=== PATIENT | male | born 1965 | race Caucasian/White ===

== ENCOUNTER 2023-10-21 13:20 | Outpatient (REF) | payer OTHER, SELFPAY ==
--- NOTE | ~2023-10-21 | XR_ITS ---
EXAMINATION: XR FOOT, RIGHT CLINICAL INFORMATION: Order states right flank pain rule out fracture. Pain 2 weeks denies injury. Patient states pain is bottom of foot. COMPARISON: Right foot of 08/26/2010. TECHNIQUE: AP, lateral, and oblique views of the right foot. FINDINGS: Mild degenerative changes in the first metatarsophalangeal and scattered interphalangeal joints of the toes. Degenerative changes on limited views of the ankle with hypertrophic change which could be better evaluated with dedicated ankle radiographs if desired. Prominent dorsal calcaneal enthesophyte. Tiny plantar calcaneal spur. Hypertrophic change at the dorsal aspect of the talar neck. XR/XR foot RT min 3V IMPRESSION: 1. Mild degenerative changes in the first metatarsophalangeal and scattered interphalangeal joints of the toes. 2. Degenerative changes on limited views of the ankle with hypertrophic change which could be better evaluated with dedicated ankle radiographs if desired. 3. Prominent dorsal calcaneal enthesophyte. Tiny plantar calcaneal spur. Recommend follow-up imaging in 10-14 days if fracture is suspected. This study was presented today for every 10/27/2023 for interpretation. Prompt priority results supplied at this time to the referring provider as requested by the provider.
== END 2023-10-21 13:21 | disposition home or self-care (01) ==
LOC: HO.HHCX 13:20
PROVIDERS: Visit Provider Pediatrics
DX: M79.671 Pain in right foot (principal)
CPT/HCPCS: 73630

== ENCOUNTER 2023-11-03 12:41 | Outpatient (REF) | payer OTHER, SELFPAY ==
--- NOTE | ~2023-11-03 | XR_ITS ---
EXAMINATION: XR FOOT, RIGHT CLINICAL INFORMATION: Arch pain, arthritic changes in right foot COMPARISON: Right foot 10/21/2023 TECHNIQUE: AP, lateral, and oblique views of the right foot. FINDINGS: The bones are intact. Alignment is within normal limits. Mild degenerative changes in the first metatarsophalangeal joint and scattered interphalangeal joints of the toes are again seen. Prominent dorsal calcaneal enthesophyte. Hypertrophic change of the dorsal aspect of the talar neck. XR/XR foot RT min 3V IMPRESSION: No acute bony abnormality. No significant interval change.
--- NOTE | ~2023-11-03 | XR_ITS ---
EXAMINATION: XR ANKLE, RIGHT CLINICAL INFORMATION: Arch pain, arthritic changes in right foot/ankle. COMPARISON: Same-day right foot, right foot 10/21/2023 TECHNIQUE: AP, lateral, and mortise views of the right ankle. FINDINGS: No fracture. Alignment is anatomic. No erosions. Joint spaces are maintained. Small anterior osteophyte extends off the distal tibia. Prominent dorsal calcaneal enthesophyte is again seen. XR/XR ankle RT min 3V IMPRESSION: No acute bony abnormality.
== END 2023-11-03 12:42 | disposition home or self-care (01) ==
LOC: HO.HHCX 12:41
PROVIDERS: Visit Provider Pediatrics
DX: M79.671 Pain in right foot (principal)
CPT/HCPCS: 73610; 73630

== ENCOUNTER 2024-03-29 07:34 | Emergency (ER) | payer OTHER, SELFPAY ==
[2024-03-29 07:38] VITALS: BP 136/92; BP 149/89; PULSE 68; PULSE 71; RESP 17; TEMP 36.6; O2SAT 96; O2SAT 99; BMI 40.0
[2024-03-29 08:00] VITALS: BP 140/75; PULSE 66; RESP 94; TEMP 36.9; O2SAT 94
[2024-03-29] MEDS: 0.9 % Sodium Chloride 1,000 ML 999 ML IVCONT ×2 (08:03→09:08)
[2024-03-29 08:08] LABS: MANUAL DIFF FLAG NO
[2024-03-29 08:14] LABS: Basophils Percent Auto 0.3 % (0-2); Eosinophils Absolute Auto 1.3 X10*3/uL (0.0-0.4); Eosinophils Percent Auto 8.5 % (0-4); Hematocrit 46.8 % (42.0-52.0); Hemoglobin 16.5 g/dl (14.0-18.0); Imm Gran Abs Auto 0.09 X10*3/uL (0.00-0.03); Imm Gran Pct Auto 0.6 % (0.0-0.4); Lymphocytes Absolute Auto 1.9 X10*3/uL (1.2-4.9); Mean Corpuscular HGB Conc 35.3 g/dl (31.0-36.0); Mean Corpuscular Hemoglobin 28.6 pg (27.0-33.0); Mean Corpuscular Volume 81.3 fL (80.0-98.0); Monocytes Percent Auto 6.5 % (2-11); Neutrophils Absolute Auto 11.3 x10*3/uL (2.0-8.3); Neutrophils Percent Auto 72.1 % (45-73); Platelet Count 210 X10*3/uL (160-400); Red Blood Count 5.76 X10*6/uL (4.60-5.80); Red Cell Distribution Width 13.2 % (11.0-16.0); White Blood Count 15.7 X10*3/uL (4.8-10.8)
[2024-03-29 08:25] LABS: Alanine Aminotransferase 14 U/L (0-40); Albumin Level 3.9 g/dL (3.5-5.0); Alkaline Phosphatase 77 U/L (39-117); Anion Gap 15 (12-20); Aspartate Amino Transferase 17 U/L (5-37); Bilirubin Total 0.6 mg/dL (0.0-1.0); Blood Urea Nitrogen 9 mg/dL (9-16); Calcium 9.1 mg/dL (8.4-10.2); Carbon Dioxide 27 mmol/L (22-29); Chloride 103 mmol/L (96-108); Creatinine Clr Calc Pharmacy 110.9; Estimated Glomerular Filt Rate > 60; Glucose Random 108 mg/dL (60-115); Potassium 3.6 mmol/L (3.3-5.1); Sodium 141 mmol/L (135-145); Total Protein 7.2 g/dL (6.5-8.0)
--- NOTE | 2024-03-29 10:13 | ED.GENADULT ---
HPI - General Adult General Chief complaint: Abdominal Pain Stated complaint: DIARRHERA, DIZZY X3 Time Seen by Provider: 03/29/24 07:37 Source: patient Mode of arrival: ambulatory Limitations: no limitations History of Present Illness ED Provider: Dr. Velez HPI narrative: Patient with weakness secondary to a few days of explosive diarrhea, states that his has had cdiff in the past. No blood, no recent abx Onset (ago): day(s) Related Data Allergies Allergy/AdvReac Type Severity Reaction Status Date / Time amoxicillin Allergy Unknown rash Verified 03/29/24 07:47 clarithromycin Allergy Unknown rash Verified 03/29/24 07:47 No Known Allergies Allergy Verified 03/29/24 07:47 [No Known Allergies*] Review of Systems Review of Systems: Yes all other systems are reviewed and are negative Neurologic: Denies Sensory deficit (Neuro) [facility] Social History Social History Smoked in Last 30 Days: No Advance Directives: No Advance Directives Information Provided: No Do you have a plan to hurt others: No Plan Physical Exam ED Vital Signs: Vital Signs - 24 hr 03/29/24 07:38 03/29/24 08:00 Temperature 97.8 F 98.5 F Pulse Rate 71 66 Respiratory Rate 17 94 H Blood Pressure 149/89 H 140/75 H Pulse Oximetry 99 94 Oxygen Delivery Method Nasal Cannula Room Air BMI result Body Mass Index 40.0 Const General: healthy appearing Nutritional Appearance: obese Orientation/consciousness: oriented to person and patient oriented x3 Limitations: no limitations HENMT Head: Yes normal to inspection Ears: external ears normal General nose exam: Normal external nose present Mouth: Normal oral and palatal mucosa present and oropharynx normal Throat: Yes posterior oropharynx normal Eyes General: appearance normal, both eyes and all related structures Neck Neck: Yes normal visual inspection Chest Chest palpation & inspection: normal inspection of the chest Resp Auscultation: clear to auscultation bilaterally Cardio Jugular venous distension: no JVD Rate: regular rate Rhythm: regular rhythm Heart sounds: S1 normal heart sound present and S2 normal heart sound present GI Inspection: Yes normal to inspection Palpation (GI): Soft to palpation, nontender and No hepatosplenomegaly present Auscultation: normal bowel sounds General: Yes no CVA tenderness Back/Spine/Pelvis Back: no CVA tenderness Skin General skin exam: no rashes or lesions noted Neuro General: oriented to person and patient oriented x3 Cranial nerves: Yes CN's II-XII intact bilaterally Motor exam (neuro): 5/5 motor strength present throughout Sensory Exam: No Sensory deficit (Neuro) Extrem General: Yes normal to inspection Psych Appearance: grossly normal Course Reevaluation(s) Reevaluation #1: patient hungry, looking well, cdiff negative, will dc home Time: 12:59 Medications Administered Discontinued Medications Generic Name Dose Route Start Last Admin Trade Name Freq PRN Reason Stop Dose Admin Sodium Chloride 1,000 mls @ 999 mls/hr 03/29/24 08:00 03/29/24 10:29 Ns IVCONT 03/29/24 10:00 Infused .Q1H1M SUJEY Infusion Oxycodone HCl 15 mg 03/29/24 10:13 03/29/24 10:23 Oxycodone Hcl Immed Release 15 Mg Tablet PO 03/29/24 10:14 15 mg ONCE ONE Administration Medical Decision Making Differential Diagnosis Differential Diagnoses: The differential diagnosis associated with the presentation includes (diarrhea, cdiff, dehydration, renal failure) Admission/Observation Consideration of admission/observation: Escalation of care including admission/observation considered (upon arrival patient considered for admission) Lab Data 03/29/24 07:59 03/29/24 07:59 Labs: Lab Results 03/29/24 03/29/24 Range/Units 07:59 11:16 WBC 15.7 H (4.8-10.8) X10*3/uL RBC 5.76 (4.60-5.80) X10*6/uL Hgb 16.5 (14.0-18.0) g/dl Hct 46.8 (42.0-52.0) % MCV 81.3 (80.0-98.0) fL MCH 28.6 (27.0-33.0) pg MCHC 35.3 (31.0-36.0) g/dl RDW 13.2 (11.0-16.0) % Plt Count 210 (160-400) X10*3/uL MPV 10.0 (9.4-12.4) fL Immature Gran % (Auto) 0.6 H (0.0-0.4) % Neut % (Auto) 72.1 (45-73) % Lymph % (Auto) 12.0 L (20-40) % [place] % (Auto) 6.5 (2-11) % Eos % (Auto) 8.5 H (0-4) % Baso % (Auto) 0.3 (0-2) % Lymph # (Auto) 1.9 (1.2-4.9) X10*3/uL [place] # (Auto) 1.0 (0.1-1.2) X10*3/uL Eos # (Auto) 1.3 H (0.0-0.4) X10*3/uL Baso # (Auto) 0.0 (0.0-0.2) X10*3/uL Abs Immat Gran (auto) 0.09 H (0.00-0.03) X10*3/uL Absolute Neuts (auto) 11.3 H (2.0-8.3) x10*3/uL Absolute Nucleated RBC 0.000 (0.0-0.012) X10*3/uL Nucleated RBC % (auto) 0.0 (0.0-0.2) /100WBC Sodium 141 (135-145) mmol/L Potassium 3.6 (3.3-5.1) mmol/L Chloride 103 (96-108) mmol/L Carbon Dioxide 27 (22-29) mmol/L Anion Gap 15 (12-20) BUN 9 (9-16) mg/dL Creatinine 1.04 (0.5-1.4) mg/dL Estim Creat Clear Calc 110.9 Estimated GFR > 60 Random Glucose 108 (60-115) mg/dL Calcium 9.1 (8.4-10.2) mg/dL Total Bilirubin 0.6 (0.0-1.0) mg/dL AST 17 (5-37) U/L ALT 14 (0-40) U/L Alkaline Phosphatase 77 (39-117) U/L Total Protein 7.2 (6.5-8.0) g/dL Albumin 3.9 (3.5-5.0) g/dL C. difficile Tox B Gene NEGATIVE (Negative) Tests considered The following testing was considered but not selected: CT of abdomen considered but abdomen is soft nontender non focal Prescription Management I considered prescription management with: Antibiotic (despite elevated WBC, no evidence of infectious etiology) Chronic Conditions Patient?s care impacted by: Other (COPD) Discharge Plan Discharge Clinical Impression: Enteritis Patient Disposition: Home, Self-Care Instructions: Acute Diarrhea (ED) Additional Instructions: clear liquid diet until diarrhea stops Referrals: Jennifer Cox MD [Primary Care Provider] - 5 days Print Language: Mohawk
[2024-03-29] MEDS: oxyCODONE HCl Immed Release 15 MG TABLET PO (10:23)
[2024-03-29 12:28] LABS: CDiff Gene PCR NEGATIVE (Negative)
[2024-03-29 13:27] VITALS: BP 140/75; PULSE 66; RESP 94; TEMP 36.9; O2SAT 94
[2024-03-30 07:08] LABS: Adenovirus F 40/41 Not Detected (Not Detect.); Astrovirus Not Detected (Not Detect.); Campylobacter Not Detected (Not Detect.); Cryptosporidium Not Detected (Not Detect.); Cyclospora cayetanensis Not Detected (Not Detect.); E. coli EAEC Not Detected (Not Detect.); E. coli EPEC Not Detected (Not Detect.); E. coli ETEC Not Detected (Not Detect.); E. coli STEC Not Detected (Not Detect.); Entamoeba histolytica Not Detected (Not Detect.); Giardia lamblia Not Detected (Not Detect.); Norovirus GI/GII Not Detected (Not Detect.); Plesiomonas shigelloides Not Detected (Not Detect.); Rotavirus A Not Detected (Not Detect.); Salmonella Not Detected (Not Detect.); Sapovirus Not Detected (Not Detect.); Shigella sp./EIEC Not Detected (Not Detect.); Vibrio Not Detected (Not Detect.); Vibrio Cholerae Not Detected (Not Detect.); Yersinia enterocolitica Not Detected (Not Detect.)
== END 2024-03-29 13:28 | disposition home or self-care (01) ==
PROVIDERS: Emergency Provider Emergency Medicine; PCP Pediatrics
DX: K52.9 Noninfective gastroenteritis and colitis, unspecified (principal); R11.2 Nausea with vomiting, unspecified; Z79.899 Other long term (current) drug therapy; D89.89 Other specified disorders involving the immune mechanism, not elsewhere classified
CPT/HCPCS: 36415; 80053; 85025; 87493; 87507; 96360; 96361; 99284; 99285

== ENCOUNTER 2024-05-02 11:56 | Outpatient (REF) | payer OTHER, SELFPAY ==
[2024-05-02 15:30] LABS: TSH reflex Free T4 1.53 uIU/mL (0.32-4.0)
[2024-05-02 15:32] LABS: PSA,Total (Free>4and<10) 0.63 ng/mL (0.00-4.00)
[2024-05-06 10:48] LABS: Testosterone, Total 332 ng/dL (250-1100)
== END 2024-05-02 11:57 | disposition home or self-care (01) ==
LOC: HO.CHCLDS 11:56
PROVIDERS: Visit Provider Pediatrics
DX: F43.21 Adjustment disorder with depressed mood (principal); R53.82 Chronic fatigue, unspecified; Z12.5 Encounter for screening for malignant neoplasm of prostate
CPT/HCPCS: 36415; 84153; 84403; 84443

== ENCOUNTER → 2024-05-09 14:16 | Outpatient (REF) | payer OTHER, SELFPAY | LOC: HO.SL 14:16 | PROVIDERS: PCP Pediatrics; Visit Provider Pediatrics | DX: G47.33 Obstructive sleep apnea (adult) (pediatric) (principal) | CPT/HCPCS: 95806 ==

== ENCOUNTER → 2024-05-09 19:00 | Outpatient (BNV) | payer OTHER, SELFPAY | PROVIDERS: PCP Pediatrics; Visit Provider Internal Medicine | DX: R06.83 Snoring (principal) | CPT/HCPCS: 95806 ==

== ENCOUNTER 2025-08-09 10:49 | Outpatient (REF) | payer OTHER, SELFPAY ==
[2025-08-09 15:06] LABS: MANUAL DIFF FLAG NO
[2025-08-09 15:09] LABS: Hematocrit 46.4 % (42.0-52.0); Hemoglobin 15.7 g/dl (14.0-18.0); Imm Gran Abs Auto 0.02 X10*3/uL (0.00-0.03); Imm Gran Pct Auto 0.2 % (0.0-0.4); Lymphocytes Absolute Auto 2.0 X10*3/uL (1.2-4.9); Mean Corpuscular HGB Conc 33.8 g/dl (31.0-36.0); Mean Corpuscular Hemoglobin 28.2 pg (27.0-33.0); Mean Corpuscular Volume 83.5 fL (80.0-98.0); NRBC Abs Auto 0.000 X10*3/uL (0.0-0.012); NRBC Pct Auto 0.0 /100WBC (0.0-0.2); Platelet Count 230 X10*3/uL (160-400); Red Blood Count 5.56 X10*6/uL (4.60-5.80); White Blood Count 8.0 X10*3/uL (4.8-10.8)
[2025-08-09 16:04] LABS: Alanine Aminotransferase 21 U/L (0-40); Albumin Level 4.4 g/dL (3.5-5.0); Alkaline Phosphatase 72 U/L (39-117); Anion Gap 12 (12-20); Aspartate Amino Transferase 28 U/L (5-37); Blood Urea Nitrogen 7 mg/dL (9-16); Calcium 9.5 mg/dL (8.4-10.2); Carbon Dioxide 30 mmol/L (22-29); Chloride 104 mmol/L (96-108); Cholesterol 216 mg/dL (<200); Estimated Glomerular Filt Rate > 60; HDL Cholesterol 46 mg/dL (>40); Magnesium 2.3 mg/dL (1.6-2.6); Potassium 3.8 mmol/L (3.3-5.1); Sodium 142 mmol/L (135-145); Total Protein 7.6 g/dL (6.5-8.0); Triglycerides 87 mg/dL (<150); Uric Acid 6.9 mg/dL (3.4-7.0)
[2025-08-09 16:10] LABS: Folate 7.6 ng/mL (> or = 4.0); Vitamin B12 423 pg/mL (200-900)
== END 2025-08-09 10:50 ==
LOC: HO.CHCLDS 10:49
PROVIDERS: Visit Provider Pediatrics
DX: Z01.84 Encounter for antibody response examination (principal); Z13.1 Encounter for screening for diabetes mellitus; I10 Essential (primary) hypertension; G89.4 Chronic pain syndrome; E66.01 Morbid (severe) obesity due to excess calories; G47.33 Obstructive sleep apnea (adult) (pediatric); R53.82 Chronic fatigue, unspecified
CPT/HCPCS: 36415; 80048; 80061; 80076; 82607; 82746; 83036; 83735; 84402; 84403; 84443; 84550; 85025; 85652; 86038; 86140